=== PATIENT | female | born 1990 | race Caucasian/White ===

== ENCOUNTER 2019-01-31 10:43 | Emergency (ER) | payer BC ==
--- NOTE | 2019-01-31 10:58 | ER Report ---
History and Physical Time Seen By MD: 10:55 Hx. of Stated Complaint: patient reports numbness to left qrm and face after a migraine. Normally gets auras and vision changes HPI/ROS CHIEF COMPLAINT: Migraine headache HISTORY OF PRESENT ILLNESS: This is a 29-year-old female who presents to the emergency department for migraine headache. Patient states that she's had migraine headaches for the last 3-4 years, she typically gets the aura typically last for 3-4 days, she is not on preventative medications at decided. She states today it gradually came on midmorning, she's been drinking large quantities of water, this typically helps has not helped today then she developed some numbness on the left side of her face and tongue and her left fingertips and her left toes. She became nervous decided come in for an evaluation. He denies imaging for her headaches. She is photophobic, intermittent nausea no vomiting. No chest pain or shortness breath. She does have seasonal allergies, she is also visiting from [place]. REVIEW OF SYSTEMS: Constitutional: No fever, no chills. Eyes: No discharge. ENT: No sore throat. Cardiovascular: No chest pain, no palpitations. Respiratory: No cough, no shortness of breath. Gastrointestinal: No abdominal pain, no vomiting. Genitourinary: No hematuria. Musculoskeletal: No back pain. Skin: No rashes. Neurological: As above. Allergies: Coded Allergies: Penicillins (Verified Allergy, Mild, rash, 01/31/19) sulfamethoxazole (Verified Allergy, Mild, rash, 01/31/19) trimethoprim (Verified Allergy, Mild, rash, 01/31/19) Past Medical/Surgical History Patient has a past medical and surgical history of migraine headaches, anxiety, depression. Reviewed Nurses Notes: Yes Hx Substance Use Disorder: No Hx Alcohol Use: No Constitutional Vital Sign - Last 24 Hours 01/31/19 01/31/19 10:50 16:46 Temp 98.2 Pulse 79 82 Resp 16 16 B/P (MAP) 126/81 115/72 (86) Pulse Ox 99 92 O2 Delivery Room Air Room Air Physical Exam General Appearance: The patient is alert, has no immediate need for airway protection and no signs of toxicity. Eyes: 4mm Pupils equal and round no pallor or injection. EOMs intact. No nystagmus. ENT, Mouth: Mucous membranes are moist. Respiratory: There are no retractions, lungs are clear to auscultation. Cardiovascular: Regular rate and rhythm. No murmurs, clicks or rubs. Gastrointestinal: Abdomen is soft and non tender, no masses, bowel sounds normal. Neurological: Alert and oriented 4. Moving all extremities. Following all commands. No focal neurodeficits. Equal electro optics engineer strength. Skin: Warm and dry, no rashes. Musculoskeletal: Neck is supple non tender. Extremities are nontender, nonswollen and have full range of motion. DIFFERENTIAL DIAGNOSIS: After history and physical exam differential diagnosis was considered for headache including but not limited to subarachnoid hemorrhage, migraine headache, tension headache and infectious causes such as meningitis, pharyngitis and sinusitis. Medical Decision Making Data Points Result Diagram: 01/31/19 1104 01/31/19 1104 Laboratory Hematology Test 01/31/19 11:04 White Blood Count 4.3 k/uL (4.5-11.0) L Red Blood Count 4.31 M/uL (4.17-5.56) Hemoglobin 13.5 g/dL (12.0-16.0) Hematocrit 39.3 % (34.0-47.0) Mean Corpuscular Volume 91.1 fL (80.0-96.0) Mean Corpuscular Hemoglobin 31.4 pg (26.0-33.0) Mean Corpuscular Hemoglobin Concent 34.4 g/dL (32.0-36.0) Red Cell Distribution Width 12.5 % (11.5-14.5) Platelet Count 150 K/uL (150-450) Mean Platelet Volume 8.3 fL (7.2-11.1) Neutrophils (%) (Auto) 61.6 % (39.4-72.5) Lymphocytes (%) (Auto) 31.3 % (17.6-49.6) Monocytes (%) (Auto) 6.6 % (4.1-12.4) Eosinophils (%) (Auto) 0.1 % (0.4-6.7) L Basophils (%) (Auto) 0.4 % (0.3-1.4) Nucleated RBC Relative Count (auto) 0.1 /100WBC Neutrophils # (Auto) 2.7 K/uL (2.0-7.4) Lymphocytes # (Auto) 1.4 K/uL (1.3-3.6) Monocytes # (Auto) 0.3 K/uL (0.3-1.0) Eosinophils # (Auto) 0.0 K/uL (0.0-0.5) Basophils # (Auto) 0.0 K/uL (0.0-0.1) Nucleated RBC Absolute Count (auto) 0.00 K/uL Chemistry Test 01/31/19 11:04 Sodium Level 138 mmol/L (137-145) Potassium Level 3.8 mmol/L (3.5-5.0) Chloride Level 104 mmol/L (98-107) Carbon Dioxide Level 25 mmol/L (22-31) Blood Urea Nitrogen 13 mg/dl (7-18) Creatinine 0.90 mg/dl (0.52-1.04) Glomerular Filtration Rate Calc > 60.0 Random Glucose 91 mg/dl (75-110) Calcium Level 9.5 mg/dl (8.4-10.2) Total Bilirubin 0.5 mg/dl (0.2-1.3) Aspartate Amino Transf (AST/SGOT) 33 U/L (0-35) Alanine Aminotransferase (ALT/SGPT) 34 U/L (0-56) Alkaline Phosphatase 46 U/L (0-126) Total Protein 7.0 g/dl (6.3-8.2) Albumin 4.1 g/dl (3.5-5.0) EKG/Imaging Imaging PATIENT NAME: Sully Carnes : 1990 MR: [id number] V: [id number] EXAM DATE: ORDERING PHYSICIAN: MATHEW PASCUAL TECHNOLOGIST: Location: [facility] [place] Patient: Sully Carnes : 1990 Visit/Account:[id number] Date of Sevice: 01/31/2019 EXAMINATION: CT Head without intravenous contrast HISTORY: Headache. TECHNIQUE: Axial images were obtained from the skull base to the vertex without intravenous contrast. Sagittal and coronal reformatted images are also submitted. One of the following dose optimization techniques was utilized in the performance of this exam: Automated exposure control; adjustment of the mA and/or kV according to the patient's size; or use of an iterative lyssa nstruction technique. Specific details can be referenced in the facility's radiology CT exam operational policy. COMPARISON: None available. FINDINGS: Brain volume: Normal. Ventricles: Negative. Acute ischemic changes: None. Hemorrhage: None. Masses / edema: None. Beebe-white: Negative. White matter: Negative. Vessels: Negative. Extra-axial: Negative. Calvarium / skull base: Negative. Visualized sinuses / orbits: Negative. IMPRESSION: Normal noncontrast head CT. Report Dictated By: Mathew Vital MD at 01/31/2019 12:23 PM Report E-Signed By: Mathew Vital MD at 01/31/2019 12:25 PM [id number] ED Course/Re-evaluation Clinical Indication for ER IV: Hydration, IV Access ED Course Patient was admitted to room. A history of physical were obtained. Differential diagnoses were considered. An IV was started. A CBC were obtained. Lab studies unremarkable, CT of the head was negative for any acute normalities. I did review the results with the patient. She was given a liter of normal saline, 25 mg IV Benadryl, 12.5 mg IV Phenergan, 4 mg IV Zofran. 5 mg IV Decadron. Patient declined any additional IV medications, she states that the medications haven't improved the headache and the numbness and tingling have improved. I did recommend that the patient drink plain water, take ibuprofen or Tylenol as needed for headaches, she can also try caffeine and follow-up with neurology when she returns to [place] if these headaches are more persistent. Patient was agreeable with this plan care and discharged home. Decision to Disposition Date: Jan 31, 2019 Decision to Disposition Time: 12:47 Depart Departure Latest Vital Signs Vital Signs Date Time Temp Pulse Resp B/P (MAP) Pulse Ox O2 Delivery O2 Flow Rate FiO2 01/31/19 16:46 82 16 115/72 (86) 92 Room Air 01/31/19 10:50 98.2 Impression: Primary Impression: Migraine headache with aura Condition: Improved Disposition: HOME OR SELF-CARE Patient Instructions: Migraine Headache (ED) Additional Instructions: There were no concerning findings on lab studies or CT scan of the brain. Keep drinking plenty of water. Get plenty of rest. You can take up to 800mg of Ibuprofen every 8 hours as needed for pain. You can also take 500-1000mg of Tylenol for additional pain relief. I would also recommend some Caffeine as needed for headache relief. Follow up with Neurology for headache mitigation discussion when you return home. Return to the ED for any other concerns or worsening symptoms. Problem Qualifiers Primary Impression: Migraine headache with aura Status migrainosus presence: without status migrainosus Intractability: not intractable Qualified Codes: G43.109 - Migraine with aura, not intractable, without status migrainosus MATHEW PASCUAL GRADES 9 THROUGH 12 TEACHER-BC Jan 31, 2019 10:58
[2019-01-31] MEDS ORDERED: DEXAMETHASONE SOD PHOS 10MG/ML IVP ONE (11:20)
[2019-01-31] MEDS ORDERED: ONDANSETRON 4 MG/2 ML VIAL IVP ONE (11:20)
[2019-01-31] MEDS ORDERED: NS(*) 0.9% 1000 ML BAG 1,000 ML IV ONE (11:20)
[2019-01-31] MEDS ORDERED: diphenhydrAMINE 50 MG/ML VIAL IVP ONE (11:20)
[2019-01-31 11:29] LABS: PLATELET COUNT, AUTOMATED 150 K/uL (150-450)
--- NOTE | 2019-01-31 12:32 | RADIOLOGY IMAGING REPORT ---
FACILITY: [facility] - [place] PATIENT NAME: Sully Carnes : 1990 MR: [id number] V: [id number] EXAM DATE: ORDERING PHYSICIAN: MATHEW PASCUAL TECHNOLOGIST: [facility] Patient: Sully Carnes : 1990 Visit/Account:[id number] Date of Sevice: 01/31/2019 EXAMINATION: CT Head without intravenous contrast HISTORY: Headache. TECHNIQUE: Axial images were obtained from the skull base to the vertex without intravenous contrast . Sagittal and coronal reformatted images are also submitted. One of the following dose optimization techniques was utilized in the performance of this exam: Autom ated exposure control; adjustment of the mA and/or kV according to the patient's size; or use of an i terative reconstruction technique. Specific details can be referenced in the facility's radiology C T exam operational policy. COMPARISON: None available. FINDINGS: Brain volume: Normal. Ventricles: Negative. Acute ischemic changes: None. Hemorrhage: None. Masses / edema: None. Beebe-white: Negative. White matter: Negative. Vessels: Negative. Extra-axial: Negative. Calvarium / skull base: Negative. Visualized sinuses / orbits: Negative. IMPRESSION: Normal noncontrast head CT. Report Dictated By: Mathew Vital MD at 01/31/2019 12:23 PM Report E-Signed By: Mathew Vital MD at 01/31/2019 12:25 PM [id number]
[2019-01-31 16:46] VITALS: BP 115/72
== END 2019-01-31 12:45 | disposition home or self-care (01) ==
LOC: ER 10:59
DX: G43.109 Migraine with aura, not intractable, without status migrainosus (principal)
CPT/HCPCS: 70450; 85025; 96361; 96374; 96375; 99284; J1100; J1200; J2405; J7030; 82040; 82247; 82310; 82374; 82435; 82565; 82947; 84075; 84132; 84155; 84295; 84450; 84460; 84520